=== PATIENT | female | born 1965 | race African-American/Black ===

== ENCOUNTER 2017-12-19 14:27 | Emergency (ER) | payer BC ==
[~2017-12-19] VITALS: Ht 160 cm; Wt 68.0 kg
[~2017-12-19 14:27] MED LIST: LOVA20TA PO
[2017-12-19 14:31] VITALS: BP 120/74; PULSE 106; RESP 16; TEMP 100.4; O2SAT 97
--- NOTE | 2017-12-19 15:08 | PD ---
HPI Chief Complaint: Cold / Flu Symptoms Time Seen by Provider: 15:01 Travel History International Travel<30 days: No Contact w/Intl Traveler<30days: No Traveled to known affect area: No History of Present Illness HPI The patient is a 52-year-old [place] female who presents emergency department for cough and cold symptoms that started yesterday. The patient developed a fever yesterday with productive cough producing clear sputum. She also complains of frontal headache, nausea, and body aches. She denies any vomiting or diarrhea, but did have 3 episodes of loose stool earlier today. She did not receive an influenza vaccination this year. She quit smoking 3 months ago. She does work in a senior care, has been exposed to sick individuals in the last several weeks. Symptoms are moderate, there are no current alleviating or exacerbating factors. PFSH Past Medical History Heart Rhythm Problems: No Cardiac Catheterization: No Cardiovascular Problems: No High Cholesterol: Yes Congestive Heart Failure: No Diabetes: No Diminished Hearing: No Triglycerides - High: Yes Tetanus Vaccination: < 5 Years Influenza Vaccination: No ?: Not : 4 Para: 4 Dilation and Curettage (D&C): Yes Tubal Ligation: Yes Past Surgical History Narrative Surgical Tubal ligation Coronary Artery Bypass Graft: No Social History Alcohol Use: Yes (occasionaly ) Tobacco Use: No Substance Use: No Allergies-Medications (Allergen,Severity, Reaction): Coded Allergies: No Known Allergies (Verified Adverse Reaction, Unknown, 12/19/17) Reported Meds & Prescriptions Reported Meds & Active Scripts Active No Active Prescriptions or Reported Medications Review of Systems Except as stated in HPI: all other systems reviewed are Neg General / Constitutional: Positive: Fever, Chills HENT: Positive: Headaches, Sore Throat, Congestion Cardiovascular: No: Chest Pain or Discomfort Respiratory: Positive: Cough, No: Shortness of Breath Gastrointestinal: Positive: Nausea, No: Vomiting, Diarrhea, Abdominal Pain Genitourinary: No: Dysuria Musculoskeletal: Positive: Myalgias Physical Exam Narrative GENERAL: Awake, alert, pleasant 52-year-old female who appears her stated age and is in no acute respiratory distress. SKIN: Focused skin assessment warm/dry. HEAD: Atraumatic. Normocephalic. EYES: Pupils equal and round. No scleral icterus. No injection or drainage. ENT: No nasal bleeding or discharge. Mild erythema but no exudate. Upper dentures in place. NECK: Trachea midline. No JVD. CARDIOVASCULAR: Regular, tachycardic with a heart rate of 110. RESPIRATORY: No accessory muscle use. Clear to auscultation. Breath sounds equal bilaterally. GASTROINTESTINAL: Abdomen soft, non-tender, nondistended. No rebound tenderness. Back: No CVA tenderness. MUSCULOSKELETAL: No obvious deformities. No clubbing. No cyanosis. No edema. NEUROLOGICAL: Awake and alert. No obvious cranial nerve deficits. Motor grossly within normal limits. Normal speech. PSYCHIATRIC: Appropriate mood and affect; insight and judgment normal. Data Data Last Documented VS Vital Signs Date Time Temp Pulse Resp B/P (MAP) Pulse Ox O2 Delivery O2 Flow Rate FiO2 12/19/17 14:31 100.4 106 16 120/74 (89) 97 Orders Orders Chest, Single Ap (12/19/17 ) Influenzae A/B Antigen (12/19/17 15:04) Acetaminophen (Tylenol) (12/19/17 15:15) Ondansetron Odt (Zofran Odt) (12/19/17 15:15) [facility] Medical Decision Making Medical Screen Exam Complete: Yes Emergency Medical Condition: Yes Medical Record Reviewed: Yes Interpretation(s) Last Impressions Chest X-Ray 12/19/17 0000 Signed Impressions: Service Date/Time: Tuesday, December 19, 2017 15:33 - CONCLUSION: Normal examination. Oli Portlilo MD Date/Time Source Procedure Growth Status 12/19/17 15:10 Nasal Aspirate Influenza Types A,B Antigen ([facility]) - Final NEGATIVE FOR FLU A AND B ANTIGEN.... Complete Differential Diagnosis Differential diagnosis includes influenza, viral syndrome, pneumonia, bronchitis , pyelonephritis, URI. Narrative Course Influenza screen was sent to lab. Chest x-ray was obtained. The patient was administered Tylenol 650 mg orally and Zofran 4 mg ODT. Chest x-rays unremarkable. Influenza screen is negative. The patient was given a by mouth challenge with curtis clayton. The patient tolerated Gatorade and curtis clayton without difficulty. The patient appears to have a viral syndrome. She will be provided a work excuse for 3 days, Phenergan with codeine for cough, and Zofran as needed for nausea/vomiting. She is advised to drink plenty fluids, clear liquid diet and advance as tolerated. Follow-up with her primary physician. Diagnosis Primary Impression: Viral syndrome Patient Instructions: General Instructions Additional Instructions: Work excuse for 3 days. Zofran and Phenergan with codeine as needed. Plenty of fluids to stay hydrated. Clear liquid diet and advance as tolerated. Return if symptoms worsen or progress. Med/Other Pt SpecificInfo: Prescription(s) given Scripts Ondansetron Odt (Zofran Odt) 4 Mg Tab 4 MG SL Q6HR Y for Nausea/Vomiting, #10 TAB 0 Refills Prov: Sandip Haynes MD 12/19/17 Promethazine-Codeine Liq (Promethazine-Codeine Liq) 6.25-10 Mg/5 Ml Syrp 5 ML PO Q6H Y for COUGH AND/OR COLD SYMPTOMS, #120 ML 0 Refills Prov: Sandip Haynes MD 12/19/17 Disposition: 01 DISCHARGE HOME Condition: Stable Sandip Haynes MD Dec 19, 2017 15:08
[2017-12-19] MEDS ORDERED: ONDANSETRON ODT 4 MG TAB PO ONE (15:15)
[2017-12-19] MEDS ORDERED: ACETAMINOPHEN 325 MG TAB PO ONE (15:15)
--- NOTE | 2017-12-19 15:49 | RADRPT ---
EXAM DATE/TIME: 12/19/2017 15:33 [facility] COMPARISON: CHEST SINGLE AP, August 14, 2016, 3:08. INDICATIONS : Flu like symptoms. MEDICAL HISTORY : Hypercholesterolemia. SURGICAL HISTORY : Tubal ligation. ENCOUNTER: Initial ACUITY: 2 days PAIN SCORE: 0/10 LOCATION: Bilateral chest FINDINGS: A single view of the chest demonstrates the lungs to be symmetrically aerated without evidence of mas s, infiltrate or effusion. The cardiomediastinal contours are unremarkable. Osseous structures are intact. CONCLUSION: Normal examination. Oli Portillo MD on December 19, 2017 at 15:47 Board Certified Radiologist. This report was verified electronically.
[2017-12-19] MEDS ORDERED: ZOFR4TAB3 SL (16:41)
[2017-12-19] MEDS ORDERED: PROM6.256 PO (16:41)
== END 2017-12-19 16:59 | disposition home or self-care (01) ==
LOC: NEPD 14:27
DX: B34.9 Viral infection, unspecified (principal); Z87.891 Personal history of nicotine dependence
CPT/HCPCS: 71045; 87804; 99284